=== PATIENT | female | born 1975 | race Caucasian/White ===

== ENCOUNTER 2016-10-17 23:04 | Emergency (ER) | payer OTHER | END 2016-10-18 00:20 | disposition home or self-care (01) | LOC: ER 23:04 | DX: Z20.2 Contact with and (suspected) exposure to infections with a predominantly sexual mode of transmission (principal); F17.210 Nicotine dependence, cigarettes, uncomplicated; Z79.899 Other long term (current) drug therapy | CPT/HCPCS: 96372; J0696 ==

== ENCOUNTER 2016-10-22 15:46 | Emergency (ER) | payer OTHER | END 2016-10-22 17:20 | disposition home or self-care (01) | LOC: ER 15:46 | DX: T63.461A Toxic effect of venom of wasps, accidental (unintentional), initial encounter (principal); F32.9 Major depressive disorder, single episode, unspecified; F90.9 Attention-deficit hyperactivity disorder, unspecified type; F17.210 Nicotine dependence, cigarettes, uncomplicated; Z23 Encounter for immunization | CPT/HCPCS: 90471; 96372; J1100 ==

== ENCOUNTER 2017-02-01 22:05 | Emergency (ER) | payer OTHER | END 2017-02-01 22:28 | disposition home or self-care (01) | LOC: ER 22:05 | DX: J32.9 Chronic sinusitis, unspecified (principal); J30.9 Allergic rhinitis, unspecified; R11.0 Nausea; F32.9 Major depressive disorder, single episode, unspecified; F90.9 Attention-deficit hyperactivity disorder, unspecified type; F17.210 Nicotine dependence, cigarettes, uncomplicated; Z79.899 Other long term (current) drug therapy ==